=== PATIENT | male | born 1980 | race Two or more races ===

== ENCOUNTER 2020-05-30 12:21 | Emergency (ER) | payer OTHER ==
[~2020-05-30] VITALS: Ht 180.3 cm; Wt 106.6 kg
--- NOTE | 2020-05-30 12:30 | NUR ---
PT BIBRA FROM CLINIC C/O HIGH BLOOD SUGAR. PT RECENTLY STARTED W/ METFORMIN. PT HAS NO MEDICAL COMPLAINTS AT THIS TIME. PT AAOX4, REPSIRATIONS EVEN AND UNLABORED ON RA W/ NAD NOTED. PT CONNECTED TO THE WEAVE ROOM SUPERVISOR AND POX
--- NOTE | 2020-05-30 12:45 | NUR ---
URINE COLLECTED AND SENT TO LAB
--- NOTE | 2020-05-30 12:45 | NUR ---
BLOOD COLLECTED AND SENT TO LAB
[2020-05-30] MEDS ORDERED: IV NS 0.9% 1,000 ML BAG IV ONE (13:00)
[2020-05-30 13:14] LABS: BASOPHILS % (AUTO) 0.4 % (0.0-2.0); EOSINOPHILS % (AUTO) 1.6 % (0.0-6.0); HEMATOCRIT 41 % (39-51); HEMOGLOBIN 14.2 g/dL (13.5-17.5); LYMPHOCYTES % (AUTO) 23.9 % (20.0-44.0); MEAN CORPUSCULAR HGB CONC 34 g/dl (31.0-36.0); MEAN CORPUSCULAR VOLUME 93 fL (80-96); MONOCYTES # (AUTO) 0.7 /CMM (0.1-1.30); MONOCYTES % (AUTO) 8.1 % (2.0-12.0); NEUTROPHILS # (AUTO) 5.6 /CMM (1.8-8.9); PLATELET COUNT (AUTO) 227 /CMM (150-450); RED BLOOD CELL COUNT(AUTO) 4.46 MIL/uL (4.5-6.0); WHITE BLOOD COUNT (AUTO) 8.6 K/uL (4.3-11.0)
[2020-05-30 13:37] LABS: BILIRUBIN,DIRECT 0.1 mg/dL (0.0-0.2); BILIRUBIN,TOTAL 0.9 mg/dL (0.2-1.0); CALCIUM, SERUM 8.2 mg/dL (8.5-10.1); CREATININE 0.7 mg/dL (0.6-1.3); POTASSIUM 4.1 mmol/L (3.5-5.1); TOTAL PROTEIN, SERUM 6.5 g/dL (6.4-8.2)
[2020-05-30 13:44] LABS: APPEARANCE,URINE CLEAR (CLEAR); BILIRUBIN,URINE NEGATIVE (NEGATIVE); BLOOD, URINE NEGATIVE Ery/uL (NEGATIVE); COLOR,URINE YELLOW (YELLOW); KETONES,URINE 15 (NEGATIVE); LEUKOCYTE ESTERASE ,URINE NEGATIVE (NEGATIVE); NITRITE, URINE NEGATIVE (NEGATIVE); PH,URINE 6.5 (5.0-8.0); PROTEIN,URINE NEGATIVE (NEGATIVE); UGLUCOSE >=1000 mg/dL (NEGATIVE); UROBILINOGEN,URINE 0.2 EU/dL (0.2)
[2020-05-30 13:59] LABS: BACTERIA,URINE None seen /HPF (None Seen); SQUAMOUS EPITHELIAL CELL,UR Few /HPF (None Seen); WBC,URINE 0-1 /HPF (0-3)
[2020-05-30] MEDS ORDERED: INSULIN REGULAR, HUMAN 100 UNIT/ML 10 ML VIAL ONE (14:11)
[2020-05-30] MEDS ORDERED: METF-440 PO (14:23)
[2020-05-30] MEDS ORDERED: INSULIN REGULAR, HUMAN 100 UNIT/ML 10 ML VIAL SQ ONE (14:30)
--- NOTE | 2020-05-30 14:46 | NUR ---
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
--- NOTE | 2020-05-30 14:59 | NUR ---
COVID SWAB SENT TO LAB
--- NOTE | 2020-05-30 15:30 | NUR ---
PATIENT A/OX4, BREATHING EVEN AND UNLABORED, NO SOB NOTED, AMBULATORY WITH STEADY GAIT. YELLING THAT HE'S HUNGRY, AND HE WANTS TO LEAVE AMA. DR. CAMARILLO STILL IN HOUSE AND MADE AWARE.
--- NOTE | 2020-05-30 15:44 | NUR ---
Patient does not wish to proceed with medical care recommended by Dr. Alejandre. Patient given information related to possible complications, up to and including , which could occur as a result of leaving the hospital at this time. Patient verbalizes understanding of risks involved due to leaving against medical advice. Patient has signed AMA form. Mine Barrera Auto Mechanic Supervisor made aware.
[2020-05-30 15:47] VITALS: BP 134/83
== END 2020-05-30 15:48 | disposition left against medical advice (07) ==
LOC: ER 12:25
DX: E11.65 Type 2 diabetes mellitus with hyperglycemia (principal); Z79.84 Long term (current) use of oral hypoglycemic drugs; Z90.49 Acquired absence of other specified parts of digestive tract; E87.1 Hypo-osmolality and hyponatremia; E87.2 Acidosis; Z20.828 Contact with and (suspected) exposure to other viral communicable diseases
CPT/HCPCS: 36415; 80048; 80076; 81001; 82962 ×3; 83690; 85025; 87081; 87426; 96360; 96372; 99284; C9803; J1815; J7030; 81000-TC